=== PATIENT | male | born 1990 | race Caucasian/White ===

== ENCOUNTER 2017-07-31 12:32 | Emergency (ER) | payer OTHER ==
[2017-07-31] MEDS ORDERED: LIDOCAINE 1% 2 ML VIAL SUBQ STA (14:41)
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
[2017-07-31 15:07] VITALS: BP 134/66
[2017-07-31] MEDS ORDERED: BACITRACIN OINT TOP ONE (15:13)
== END 2017-07-31 15:08 | disposition home or self-care (01) ==
LOC: ED 12:32
DX: S61.412A Laceration without foreign body of left hand, initial encounter (principal); W26.0XXA Contact with knife, initial encounter; Y93.G3 Activity, cooking and baking; Y92.009 Unspecified place in unspecified non-institutional (private) residence as the place of occurrence of the external cause
CPT/HCPCS: 12001; 99282; 99283; A9270

== ENCOUNTER 2018-11-07 16:42 | Emergency (ER) | payer OTHER ==
[2018-11-07 16:53] VITALS: BP 148/75
--- NOTE | 2018-11-07 18:04 | XRAY Report ---
Reason: glass in foot Procedure Date: 11/07/2018 Accession Number: [id number] / [id number] Procedure: XR - Foot 2 View LT CPT Code: FULL RESULT: EXAM: LEFT FOOT RADIOGRAPHY EXAM DATE: 11/07/2018 05:30 PM. CLINICAL HISTORY: Glass in foot. COMPARISON: None. TECHNIQUE: 3 views. FINDINGS: Bones: Normal. No fractures or bone lesions. Joints: Normal. No subluxations. Soft Tissues: Normal. No soft tissue swelling. IMPRESSION: No acute displaced fracture or malalignment. Unremarkable soft tissues. No radiopaque foreign body in the soft tissues. RADIA
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
== END 2018-11-07 19:50 | disposition home or self-care (01) ==
LOC: ED 16:42
DX: S91.322A Laceration with foreign body, left foot, initial encounter (principal); W25.XXXA Contact with sharp glass, initial encounter; W45.8XXA Other foreign body or object entering through skin, initial encounter; Y93.89 Activity, other specified; Y92.009 Unspecified place in unspecified non-institutional (private) residence as the place of occurrence of the external cause
CPT/HCPCS: 28190